=== PATIENT | female | born 1975 | race Hispanic/Latino ===

== ENCOUNTER 2017-09-06 12:54 | Outpatient (CLI) | payer BC ==
--- NOTE | 2017-09-10 10:38 | MMO ---
SCREENING MAMMOGRAPHY: Date: 09-06-17 Comparison: 08-18-16, 08-16-15 History: Screening mammogram. FINDINGS: This study is interpreted with the assistance of computer aided detection. Breast parenchyma is heterogeneously dense, limiting mammographic sensitivity. Benign calcification i s seen on the left with no mass, architectural distortion, or concerning microcalcification. IMPRESSION: BIRADS 2 - benign findings. Annual screening mammography advised. POS: ALEXANDER
== END 2017-09-06 12:55 | disposition home or self-care (01) ==
LOC: SCSMAMMO 12:54
PROVIDERS: ATTEND Advanced Practice Midwife
DX: Z12.31 Encounter for screening mammogram for malignant neoplasm of breast (principal)
CPT/HCPCS: 77067

== ENCOUNTER 2019-05-08 09:55 | Outpatient (CLI) | payer BC ==
--- NOTE | 2019-05-08 11:03 | ULT ---
GALLBLADDER ULTRASOUND: INDICATION: Right upper quadrant pain. FINDINGS: No focal hepatic lesion. There is cholelithiasis. No gallbladder wall thickening or Lux's sign d emonstrated. The common duct measures 5 mm, borderline. IMPRESSION: 1. Cholelithiasis. 2. Borderline size common duct. Correlate with biliary laboratory values. 3. There is no sonographic evidence to indicate acute cholecystitis. Correlate clinically. POS: OFF
== END 2019-05-08 09:56 | disposition home or self-care (01) ==
LOC: SCSULT 09:55
PROVIDERS: ATTEND Physician Assistant
DX: R10.11 Right upper quadrant pain (principal); K80.20 Calculus of gallbladder without cholecystitis without obstruction
CPT/HCPCS: 76705